=== PATIENT | female | born 1970 | race Caucasian/White ===

== ENCOUNTER → 2017-03-21 | Outpatient (CLI) | payer OTHER ==
[~2017-03-21] MED LIST: ADVIL200 MG PO; XANAX1 MG PO
== END | disposition home or self-care (01) ==
LOC: NUC 10:00
DX: R93.6 Abnormal findings on diagnostic imaging of limbs (principal); M25.551 Pain in right hip; M25.552 Pain in left hip
CPT/HCPCS: 78306; A9503

== ENCOUNTER 2017-06-17 10:13 | Emergency (ER) | payer OTHER ==
[~2017-06-17] VITALS: Ht 172.7 cm; Wt 89.4 kg
[2017-06-17 10:53] LABS: EOSINOPHIL COUNT 0.1 K/uL (0-0.3); HEMATOCRIT 38.3 % (36.0-46.0); IMMATURE GRANULOCYTE (%) 0.2 % (0.0-0.7); INSTRUMENT ABS NEUTROPHIL CT 3.8 K/uL; LYMPHOCYTE COUNT 1.6 K/uL (1.0-2.8); MCH 30.1 PG (29.0-34.0); MCHC 32.9 G/DL (30.0-36.0); MCV 91.4 FL (83-99); MEAN PLAT.VOLUME 11.8 uM^3 (9.5-12.4); MONOCYTE (%) 7.7 % (3-12); MONOCYTE COUNT 0.5 K/uL (0-0.8); NEUTROPHIL (%) 64.1 % (45-76); NEUTROPHIL COUNT 3.8 K/uL (1.8-6.4); PLATELET COUNT 188 K/uL (156-360); RBC DIS.WIDTH-CV 13.2 % (11.8-14.6); RBC DIS.WIDTH-SD 43.9 % (39-53); RED BLOOD COUNT 4.19 M/uL (3.80-5.20); WHITE BLOOD COUNT 5.9 K/uL (4.1-10.2)
[2017-06-17 11:01] LABS: D-DIMER ELISA < 150.00 ng/mLDDU (<230); PTT 27.2 SEC (25-37)
[2017-06-17 11:05] LABS: CHLORIDE 106 mEq/L (99-109); POTASSIUM 3.8 mEq/L (3.7-5.4); SODIUM 139 mEq/L (136-147)
[2017-06-17 11:08] LABS: GLUCOSE 94 mg/dL (70-99)
[2017-06-17 11:09] LABS: ANION GAP 10 MEQ/L (2-14); TOTAL BILIRUBIN 0.4 mg/dL (0.0-1.0)
[2017-06-17 11:11] LABS: ALKALINE PHOSPHATASE 52 IU/L (3-129); GFR ESTIMATE (CALCULATED) > 59 mL/min/
[2017-06-17 11:12] LABS: UREA NITROGEN (BUN) 15 mg/dL (9-23)
[2017-06-17 11:13] LABS: DIRECT BILIRUBIN 0.2 mg/dL (0.0-0.3)
[2017-06-17 11:15] LABS: LIPASE 22 U/L (1.0-51.0); TROP-I INTERPRETATION NEGATIVE; TROPONIN-I < 0.01 ng/mL (0.0-0.30)
[2017-06-17] MEDS ORDERED: PROTONIX40 MG PO (12:25)
[2017-06-17 12:56] LABS: TROP-I INTERPRETATION NEGATIVE; TROPONIN-I < 0.01 ng/mL (0.0-0.30)
[2017-06-17 13:29] VITALS: BP 134/73
== END 2017-06-17 13:31 | disposition home or self-care (01) ==
LOC: EME 10:13
PROVIDERS: Emergency Medicine
DX: R07.9 Chest pain, unspecified (principal); M79.89 Other specified soft tissue disorders; K21.9 Gastro-esophageal reflux disease without esophagitis
CPT/HCPCS: 71010; 80048; 80076; 83690; 84484; 85025; 85379; 85610; 85730; 93005; 93971; 99281; 99284